=== PATIENT | female | born 1965 | race African-American/Black ===

== ENCOUNTER 2016-06-23 19:49 | Inpatient (IN) | payer OTHER, MEDICAID ==
[2016-06-23 19:50] VITALS: O2SAT 100
[2016-06-23] MEDS ORDERED: ONDANSETRON HCL 4 MG/2 ML VIAL ONE (19:56)
[2016-06-23] MEDS ORDERED: fentaNYL CITRATE 250 MCG/5 ML AMP ONE (19:56)
[2016-06-23] MEDS ORDERED: PROPOFOL 1000 MG/100 ML INJ 100 ML ONE ×2 (19:56→20:01)
[2016-06-23] MEDS: SODIUM CHLOR 0.9% 1000 ML INJ 1,000 ML IV SCH (20:12)
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
[2016-06-23] MEDS ORDERED: DEXTROSE 50% IN WATER 50 ML VIAL(D50) IV PUSH PRN (20:15)
[2016-06-23] MEDS ORDERED: MISCELLANEOUS NURSING INFORMATION XX SCH (20:15)
[2016-06-23] MEDS ORDERED: SODIUM PHOSPHATE INJ 30 MMOL in SODIUM CHLOR 0.9% 250 ML INJ 240 ML IV PRN (20:15)
[2016-06-23] MEDS ORDERED: ONDANSETRON HCL 4 MG/2 ML VIAL IV PRN (20:15)
[2016-06-23] MEDS ORDERED: MAGNESIUM SULFATE INJ 4 GM in SODIUM CHLORIDE 0.9% INJ 92 ML IV PRN (20:15)
[2016-06-23] MEDS ORDERED: POTASSIUM PHOSPHATE MONOBASIC 500 MG TAB PO/TUBE PRN (20:15)
[2016-06-23] MEDS ORDERED: MAGNESIUM SULFATE INJ 2 GM in SODIUM CHLORIDE 0.9% INJ 96 ML IV PRN (20:15)
[2016-06-23] MEDS ORDERED: POTASSIUM PHOSPHATE MONOBASIC 500 MG TAB PO PRN (20:15)
[2016-06-23] MEDS ORDERED: DIPHTH/TETANUS/ACEL PERTUSSIS (BOOSTER) 0.5 ML VIAL/PFS IM ONE (20:15)
[2016-06-23] MEDS ORDERED: PROPOFOL 1000 MG/100 ML INJ 100 ML IV SCH (20:15)
[2016-06-23] MEDS ORDERED: POTASSIUM PHOSPHATE INJ 30 MMOL in SODIUM CHLOR 0.9% 250 ML INJ 250 ML IV PRN (20:15)
[2016-06-23] MEDS ORDERED: MAGNESIUM OXIDE 400 MG TAB PO PRN (20:15)
[2016-06-23] MEDS ORDERED: RESP: ALBUTEROL 2.5 MG/IPRATROPIUM 0.5 MG NEB (PRN) INH (20:15)
[2016-06-23] MEDS ORDERED: SODIUM CHLORIDE 0.9% FLUSH 5 ML FLUSH IV FLUSH PRN (20:15)
[2016-06-23] MEDS ORDERED: POTASSIUM CHLOR 40 MEQ PREMIX 100 ML IV PRN ×2 (20:15)
[2016-06-23] MEDS ORDERED: POTASSIUM CHLOR 20 MEQ PREMIX 100 ML IV PRN ×2 (20:15)
[2016-06-23] MEDS ORDERED: CHLORHEXIDINE GLUCONATE 2 % 1 PACK (2 CLOTHS) TOP PRN (20:15)
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
[2016-06-23] MEDS ORDERED: IOHEXOL 350 MG/ML 10 ML VIAL (for RAD DIAG) IV ONE (20:23)
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
[2016-06-23 20:40] LABS: AUTOMATED NEUTROPHIL # 10.8 TH/MM3 (1.8-7.7); BASOPHIL % 0.1 % (0.0-2.0); EOSINOPHIL # 0.1 TH/MM3 (0-0.4); EOSINOPHIL % 0.6 % (0.0-4.0); HEMATOCRIT 33.2 % (35.0-46.0); LYMPH % 32.2 % (9.0-44.0); LYMPHOCYTE # 5.8 TH/MM3 (1.0-4.8); MEAN CORPUSCULAR HEMOGLOBIN 27.2 PG (27.0-34.0); MEAN CORPUSCULAR HGB CONC 33.1 % (32.0-36.0); MONO % 6.6 % (0.0-8.0); NEUT % 60.5 % (16.0-70.0); PLATELET COUNT 209 TH/MM3 (150-450); RED BLOOD COUNT 4.05 MIL/MM3 (4.00-5.30); RED CELL DISTRIBUTION WIDTH 13.5 % (11.6-17.2); WHITE BLOOD COUNT 17.9 TH/MM3 (4.0-11.0)
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
[2016-06-23 20:43] LABS: HEMO FLAGS AUTO DIFF
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
[2016-06-23 20:45] VITALS: BP 142/87; PULSE 99; RESP 34; TEMP 97.8; O2SAT 100
[2016-06-23 20:52] LABS: APTT (PATIENT) 21.6 SEC (24.3-30.1); PROTHROMBIN TIME - PATIENT 10.7 SEC (9.8-11.6)
[2016-06-23 20:55] VITALS: O2SAT 100
[2016-06-23] MEDS: SODIUM CHLORIDE 0.9% FLUSH 5 ML FLUSH IV FLUSH SCH (21:00)
[2016-06-23] MEDS: DOCUSATE SODIUM 50 MG/SENNA 8.6 MG TAB PO SCH (21:00)
[2016-06-23 21:30] LABS: BANDS 6 % (0-6); NEUTROPHIL # MANUAL DIFF 11.1 TH/MM3 (1.8-7.7); PLATELET ESTIMATE SMEAR NORMAL (NORMAL); PLATELET MORPHOLOGY NORMAL (NORMAL); POLYS (SEG NEUTROPHILS) 56 % (16-70); SCAN/DIFF FINAL DIFF MANUAL; WBC DIFF SAMPLE 100
[2016-06-23 21:31] LABS: TARGET CELLS 1+ (NORMAL)
[2016-06-23] MEDS: fentaNYL DRIP 250 ML IV SCH (21:53)
[2016-06-23 22:00] VITALS: PULSE 99
[2016-06-23] MEDS: RESP: ALBUTEROL 2.5 MG/IPRATROPIUM 0.5 MG NEB (SCH) INH (22:00)
[2016-06-23 22:28] LABS: BLOOD GAS BASE EXCESS -7.3 mmol/L (-2-2); BLOOD GAS CARBOXYHEMOGLOBIN 0.7 % (0-4); BLOOD GAS HCO3 16 mmol/L (22-26); BLOOD GAS METHEMOGLOBIN 1.1 % (0-2); BLOOD GAS O2 HGB SATURATION 98 % (90-100); BLOOD GAS OXYGEN CONTENT 16.7 Vol % (12.0-20.0); BLOOD GAS PCO2 23 mmHg (38-42); BLOOD GAS PO2 556 mmHg (61-120); BLOOD GAS TOTAL HGB 11.1 G/DL (12.0-16.0); TEMP CORR TO 98.6
[2016-06-23 22:29] LABS: CRITICAL VALUE YES; OXYGEN DEVICE VENTILATOR; VENT SETTINGS AC/16/500/PEEP+5
[2016-06-23 22:30] LABS: DRAW SITE RT RADIAL; FIO2 100 %; NUMBER OF ARTERIAL PUNCTURES 1; STAT NO; ULNAR PULSE PRESENT
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
[2016-06-24] VITALS (18 sets, daily range): BP systolic 100–149; BP diastolic 51–82; PULSE 80–114; RESP 1–15; TEMP 97.3–98.6; O2SAT 100
[2016-06-24] MEDS ORDERED: METHADONE 10 MG/ML VIAL IV PUSH ONE (02:30)
[2016-06-24] MEDS ORDERED: LACTATED RINGER'S 1000 ML INJ 1,000 ML IV ONE ×3 (02:30→12:00)
[2016-06-24] MEDS: ENOXAPARIN SODIUM 40 MG/0.4 ML SYRINGE SQ SCH (03:00)
[2016-06-24] MEDS: ACETAMINOPHEN 650 MG/20.3 ML UDC PO SCH ×4 (03:00→21:00)
[2016-06-24] MEDS: oxyCODONE HCL ORAL CONC 20 MG/ML SYRINGE PO SCH ×7 (03:00→23:00)
[2016-06-24] MEDS: RESP: ALBUTEROL 2.5 MG/IPRATROPIUM 0.5 MG NEB (SCH) INH ×4 (03:54→20:42)
[2016-06-24] MEDS: GABAPENTIN 250 MG/5 ML UDC TUBE SCH ×4 (03:57→21:01)
[2016-06-24] MEDS: CHLORHEXIDINE GLUCONATE 2 % 1 PACK (2 CLOTHS) TOP SCH (04:00)
[2016-06-24 04:50] LABS: HEMATOCRIT 35.1 % (35.0-46.0); MEAN CELL VOLUME 83.1 FL (80.0-100.0); MEAN CORPUSCULAR HEMOGLOBIN 27.6 PG (27.0-34.0); MEAN CORPUSCULAR HGB CONC 33.3 % (32.0-36.0); PLATELET COUNT 165 TH/MM3 (150-450); RED BLOOD COUNT 4.23 MIL/MM3 (4.00-5.30); RED CELL DISTRIBUTION WIDTH 13.8 % (11.6-17.2); REVIEW FLAG FINAL; WHITE BLOOD COUNT 17.4 TH/MM3 (4.0-11.0)
[2016-06-24 04:56] LABS: POTASSIUM 4.3 MEQ/L (3.5-5.1)
--- NOTE | 2016-06-24 05:51 | RADRPT ---
EXAM DATE/TIME: 06/24/2016 04:31 [facility] COMPARISON: CHEST SINGLE AP, June 23, 2016, 19:57. INDICATIONS : Shortness of breath, possible pulmonary disease. MEDICAL HISTORY : None. SURGICAL HISTORY : None. ENCOUNTER: Subsequent ACUITY: 2 days PAIN SCORE: Non-responsive. LOCATION: Bilateral chest FINDINGS: Single AP view of the chest. Endotracheal tube remains in place. Nasogastric tubes in place and loope d in the stomach with the tip at the gastric cardia. The lungs are clear. Cardiomediastinal silhouett e within normal limits. No evidence of pleural effusion or pneumothorax. CONCLUSION: No acute cardiopulmonary disease identified. George Kilgore MD on June 24, 2016 at 5:49 Board Certified Radiologist. This report was verified electronically.
[2016-06-24] MEDS: INSULIN NovoLIN REGULAR SUPPLEMENTAL SCALE SQ SCH ×4 (05:52→17:40)
[2016-06-24 06:37] LABS: BLOOD GAS BASE EXCESS -6.2 mmol/L (-2-2); BLOOD GAS CARBOXYHEMOGLOBIN 0.7 % (0-4); BLOOD GAS HCO3 19 mmol/L (22-26); BLOOD GAS METHEMOGLOBIN 0.9 % (0-2); BLOOD GAS O2 HGB SATURATION 98 % (90-100); BLOOD GAS OXYGEN CONTENT 12.7 Vol % (12.0-20.0); BLOOD GAS PCO2 40 mmHg (38-42); BLOOD GAS PO2 206 mmHg (61-120); BLOOD GAS TOTAL HGB 8.9 G/DL (12.0-16.0); TEMP CORR TO 98.6
[2016-06-24 06:38] LABS: CRITICAL VALUE NO; DRAW SITE RT RADIAL; FIO2 40 %; NUMBER OF ARTERIAL PUNCTURES 1; OXYGEN DEVICE VENTILATOR; STAT NO; ULNAR PULSE PRESENT; VENT SETTINGS AC/14/450/PEEP5
[2016-06-24] MEDS: SODIUM CHLOR 0.9% 1000 ML INJ 1,000 ML IV SCH ×2 (07:40→20:02)
[2016-06-24] MEDS: CHLORHEXIDINE 0.12% (ORAL KIT) 15 ML CUP MT SCH ×2 (07:40→20:00)
[2016-06-24] MEDS: SODIUM CHLORIDE 0.9% FLUSH 5 ML FLUSH IV FLUSH SCH (07:40)
[2016-06-24] MEDS: DOCUSATE SODIUM 50 MG/SENNA 8.6 MG TAB PO SCH ×2 (07:41→21:00)
[2016-06-24] MEDS ORDERED: PANTOPRAZOLE SODIUM 40 MG VIAL IV SCH (09:00)
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
[2016-06-24] MEDS ORDERED: ONDANSETRON HCL 4 MG/2 ML VIAL IV PUSH ONE (12:00)
[2016-06-24] MEDS: fentaNYL DRIP 250 ML IV SCH (17:37)
[2016-06-24] MEDS ORDERED: ceFAZolin 2 GM PREMIX 50 ML ONE (18:48)
[2016-06-24] MEDS ORDERED: HYDROmorphone HCL PF 2 MG/ML VIAL ONE (18:57)
[2016-06-24] MEDS ORDERED: ACETAMINOPHEN 1000 MG/100 ML VIAL IV ONE (18:57)
[2016-06-24] MEDS ORDERED: VANCOMYCIN HCL 1000 MG VIAL OTHER ONE (19:20)
[2016-06-24] MEDS ORDERED: ceFAZolin INJ 1,000 MG VIAL IV ONE (19:26)
[2016-06-24] MEDS ORDERED: GENTAMICIN SULFATE 80 MG/2 ML VIAL IRRIGATION ONE (19:32)
--- NOTE | 2016-06-24 20:14 | PD.OP ---
cc: Ryan Cadet MD Operative Report Date of Surgery: Jun 24, 2016 Preoperative Diagnosis: Left femur fracture, left humerus fracture, bilateral clavicle fractures, left scapula fracture Postoperative Diagnosis: Procedure: Left femur reduction and intramedullary nail fixation Anesthesia: Gen. Surgeon: Ryan Cadet Construction Materials Tester(s): CHANDANA Durham PA-C The surgical procedure was assisted by my physician dental chairside assistant. My P.A. presence was necessary throughout this case for the manipulation and positioning of the surgical extremity. My P.A. was assisting me throughout the duration of this procedure. The skill set of a physician dental chairside assistant was medically necessary to complete this procedure. During the surgical case the surgical instrument technician was working at the back table and the physician dental chairside assistant was directly assisting me. Operation and Findings: Plan of activity: Weight-bear as tolerated bilateral lower extremities, nonweightbearing left arm Patient was seen and evaluated preoperatively. The patient has significant leg pain from femur shaft fracture. The risk and benefits of surgery include bleeding, infection, nonunion, malunion, need for hip replacement, painful hardware, as well as medical competitions including blood clots, stroke, heart attack, and . Informed consent was obtained. Operative site was marked. Patient was brought to the operating room and placed on Kg table. IV sedation was administered by anesthesiologist. Timeout procedure was performed. Hip and leg were prepped with alcohol followed by Hibiclens and draped in the usual sterile fashion. IV antibiotics were given prior to incision. Procedure began with reduction of fracture. Traction was applied. The leg was manipulated to achieve reduction. Excellent reduction was achieved. Fluoroscopy was used to confirm reduction. A two inch incision was made over the anterior knee. A medial arthrotomy was created. Guidepin was placed into the distal femur and advanced into the femoral canal. Fluoroscopy confirmed appropriate guidepin placement. A opening reamer was placed over the guidepin. A long ball tipped guide pin was now placed down the femoral canal into the center of the proximal femur. The nail length was now measured. Fluoroscopy confirmed appropriate guidepin placement. Flexible reamers were now passed over the guidepin to ream the intramedullary canal. The BitTorrent nail was attached to the insertion handle. Nail was now placed over the guidepin into the femoral canal. Fluoroscopy confirmed appropriate nail placement. A small percutaneous incisions were made over the lateral thigh. Cannulas were placed through the insertion handle down to the femur. Using the insertion handle as a guide the distal interlocking screw holes were predrilled and screw lengths were measured. Appropriate length screws was now placed. Next, using perfect [place] technique two proximal interlocking screws were placed. Screw holes were predrilled and screw lengths were measured. Final fluoroscopy revealed well aligned fracture with well-placed hardware. Incision was closed with 0 Vicryl, 3-0 Vicryl and regan. Sterile dressings were applied. Patient was transferred back to [facility] in stable condition. Ryan Cadet MD Jun 24, 2016 20:14
[2016-06-24] MEDS ORDERED: MORPHINE SULFATE 4 MG/ML INJ IV PUSH PRN ×2 (20:15→21:15)
[2016-06-24] MEDS ORDERED: ACETAMINOPHEN/HYDROcodone 325 MG/7.5 MG TAB PO PRN ×2 (20:15)
[2016-06-24] MEDS ORDERED: fentaNYL CITRATE 250 MCG/5 ML AMP ONE (20:36)
[2016-06-24] MEDS ORDERED: MIDAZOLAM HCL 2 MG/2 ML VIAL ONE (20:36)
[2016-06-24] MEDS: SODIUM CHLORIDE 0.9% FLUSH 5 ML FLUSH IVF SCH (21:00)
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
[2016-06-24] MEDS ORDERED: ceFAZolin INJ 500 MG in SODIUM CHLORIDE 0.9% INJ 100 ML IV SCH (21:15)
[2016-06-24] MEDS ORDERED: ACETAMINOPHEN/CODEINE ELIX 120 MG/12 MG/5 ML CUP PO PRN (21:15)
--- NOTE | 2016-06-24 21:52 | RADRPT ---
EXAM DATE/TIME: 06/24/2016 19:59 [facility] COMPARISON: No previous studies available for comparison. INDICATIONS : Left Femur IM Heladio placement MEDICAL HISTORY : Unobtainable. SURGICAL HISTORY : Unobtainable. ENCOUNTER: Initial ACUITY: 1 day PAIN SCORE: Non-responsive. LOCATION: Left Femur. FINDINGS: Mid to distal shaft fracture of the left femur has undergone interim intramedullary rodding. Alignmen t is normal. No new fracture or other acute complication seen. CONCLUSION: Intramedullary heladio placement across the mid to distal shaft fracture of the left femur. Normal alignm ent. Jaun Steele MD on June 24, 2016 at 21:50 Board Certified Radiologist. This report was verified electronically.
[2016-06-25] VITALS (9 sets, daily range): BP systolic 103–139; BP diastolic 66–88; PULSE 83–118; RESP 14–22; TEMP 97.4–99.6; O2SAT 100
[2016-06-25] MEDS: ACETAMINOPHEN 325 MG TAB PO SCH ×2 (00:25→06:44)
[2016-06-25] MEDS: ENOXAPARIN SODIUM 40 MG/0.4 ML SYRINGE SQ SCH (03:40)
[2016-06-25] MEDS: CHLORHEXIDINE GLUCONATE 2 % 1 PACK (2 CLOTHS) TOP SCH (03:40)
[2016-06-25 04:34] LABS: ALT (GPT) 37 U/L (10-53); ANION GAP 9 MEQ/L (5-15); AST (GOT) 70 U/L (15-37); BICARBONATE 20.8 MEQ/L (21.0-32.0); BLOOD UREA NITROGEN 4 MG/DL (7-18); CHLORIDE 111 MEQ/L (98-107); GLOMERULAR FILTRATION RATE 100 ML/MIN (>89); MAGNESIUM 1.6 MG/DL (1.5-2.5); SODIUM (NA) 141 MEQ/L (136-145)
[2016-06-25 04:36] LABS: ALKALINE PHOSPHATASE 54 U/L (45-117); TOTAL BILIRUBIN ADULT 0.5 MG/DL (0.2-1.0)
[2016-06-25 05:21] LABS: BLOOD GAS BASE EXCESS -3.7 mmol/L (-2-2); BLOOD GAS CARBOXYHEMOGLOBIN 0.9 % (0-4); BLOOD GAS HCO3 21 mmol/L (22-26); BLOOD GAS METHEMOGLOBIN 0.6 % (0-2); BLOOD GAS O2 HGB SATURATION 98 % (90-100); BLOOD GAS OXYGEN CONTENT 11.5 Vol % (12.0-20.0); BLOOD GAS PCO2 41 mmHg (38-42); BLOOD GAS PO2 239 mmHg (61-120); BLOOD GAS TOTAL HGB 7.9 G/DL (12.0-16.0); CRITICAL VALUE NO; DRAW SITE RT RADIAL; LITER FLOW 4 L/M; NUMBER OF ARTERIAL PUNCTURES 1; OXYGEN DEVICE NASAL CANNULA; STAT NO; TEMP CORR TO 98.6; ULNAR PULSE PRESENT
[2016-06-25] MEDS: INSULIN NovoLIN REGULAR SUPPLEMENTAL SCALE SQ SCH ×4 (06:00→18:00)
--- NOTE | 2016-06-25 06:17 | RADRPT ---
EXAM DATE/TIME: 06/25/2016 03:27 [facility] COMPARISON: No previous studies available for comparison. INDICATIONS : Shortness of breath. MEDICAL HISTORY : None. SURGICAL HISTORY : None. ENCOUNTER: Subsequent ACUITY: 3 days PAIN SCORE: Non-responsive. LOCATION: Bilateral chest FINDINGS: A single view of the chest demonstrates the lungs to be symmetrically aerated without evidence of mas s, infiltrate or effusion. The cardiomediastinal contours are unremarkable. Osseous structures are intact. CONCLUSION: 1. No acute findings. Previous endotracheal tube and nasogastric tube removed. Kareem Sousa MD on June 25, 2016 at 6:15 Board Certified Radiologist. This report was verified electronically.
[2016-06-25] MEDS: GABAPENTIN 300 MG CAP PO SCH ×3 (06:44→21:47)
--- NOTE | 2016-06-25 07:43 | PD.ORT.PN ---
Subjective Subjective Remarks POD 1 s/p IMN left femur s/p left humerus fx s/p left scapula and bilateral clavicle fxs doing well. pain controlled. states are is sore Objective Vitals Vital Signs Date Time Temp Pulse Resp B/P Pulse Ox O2 Delivery O2 Flow Rate FiO2 06/25/16 06:00 83 06/25/16 04:00 86 06/25/16 04:00 98.4 86 22 126/71 100 06/25/16 02:00 102 06/25/16 00:00 86 06/25/16 00:00 97.4 86 14 108/68 100 06/24/16 22:00 114 06/24/16 21:00 98.2 99 15 100/59 100 06/24/16 20:43 100 Simple Mask 8.00 06/24/16 20:30 100 Simple Mask 8.00 06/24/16 18:45 100 100 06/24/16 18:00 100 06/24/16 16:33 30 06/24/16 16:33 100 30 06/24/16 16:00 109 06/24/16 16:00 40 06/24/16 16:00 98.4 95 14 142/69 100 06/24/16 14:00 89 06/24/16 12:58 100 30 06/24/16 12:00 100 06/24/16 12:00 40 06/24/16 12:00 98.6 98 1 118/56 100 06/24/16 10:00 86 06/24/16 08:00 40 06/24/16 08:00 83 06/24/16 08:00 97.4 83 14 118/56 100 I/O 06/24/16 06/24/16 06/24/16 06/25/16 06/25/16 06/25/16 07:00 15:00 23:00 07:00 15:00 23:00 Intake Total 1779 ml 60 ml 2273 ml 1884 ml Output Total 485 ml 600 ml 350 ml 1250 ml Balance 1294 ml -540 ml 1923 ml 634 ml Intake Oral 300 ml IV Total 1779 ml 2153 ml 1584 ml Other 60 ml 120 ml Output Urine Total 485 ml 600 ml 350 ml 1250 ml # Bowel Movements 0 0 0 Result Diagram: 06/24/16 0334 06/25/16 0330 Imaging Last 24 hours Impressions Chest X-Ray 06/25/16 0600 Signed Impressions: Service Date/Time: Saturday, June 25, 2016 03:27 - CONCLUSION: 1. No acute findings. Previous endotracheal tube and nasogastric tube removed. Kareem Sousa MD Objective Remarks LUE: +coap splint. +sling. NVI with good function of radial nerve LLE: dressings clean and dry. intact. NVI RUE: pain over clavicle with palpation. NVI Assessment & Plan Assessment and Plan 1) Left Femoral Shaft fx s/p retrograde IMN - POD 1 -WBAT -daily dressing changes POD 2 -knee brace was DC'd at bedside. does not need to have knee brace. -work wit PT 3) Left Distal Humeral Shaft Fx -maintain splint and sling at all times -NWB -plan for surgery tue/tu 2) Bilateral Clavicle and left scapula fxs -nonop -NWB Juni Wiley Jun 25, 2016 07:43
[2016-06-25] MEDS: SODIUM CHLORIDE 0.9% FLUSH 5 ML FLUSH IVF SCH ×2 (09:09→21:48)
[2016-06-25] MEDS: DOCUSATE SODIUM 50 MG/SENNA 8.6 MG TAB PO SCH ×2 (09:09→21:47)
[2016-06-25] MEDS: CALCIUM/VITAMIN D 250 MG/125 U TAB PO SCH ×3 (09:09→16:48)
[2016-06-25] MEDS: CHOLECALCIFEROL (VIT D3) 1000 UNIT TAB PO SCH (09:09)
[2016-06-25] MEDS: SODIUM CHLOR 0.9% 1000 ML INJ 1,000 ML IV SCH (09:10)
[2016-06-25 11:39] LABS: AUTOMATED NEUTROPHIL # 11.5 TH/MM3 (1.8-7.7); BASOPHIL % 0.3 % (0.0-2.0); EOSINOPHIL % 0.2 % (0.0-4.0); HEMATOCRIT 25.3 % (35.0-46.0); HEMO FLAGS DIFF FINAL; LYMPH % 10.7 % (9.0-44.0); LYMPHOCYTE # 1.5 TH/MM3 (1.0-4.8); MEAN CELL VOLUME 83.7 FL (80.0-100.0); MEAN CORPUSCULAR HEMOGLOBIN 26.9 PG (27.0-34.0); MEAN CORPUSCULAR HGB CONC 32.2 % (32.0-36.0); MONO % 6.8 % (0.0-8.0); PLATELET COUNT 114 TH/MM3 (150-450); RED BLOOD COUNT 3.03 MIL/MM3 (4.00-5.30); RED CELL DISTRIBUTION WIDTH 13.5 % (11.6-17.2); WHITE BLOOD COUNT 14.1 TH/MM3 (4.0-11.0)
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
[2016-06-25] MEDS: FAMOTIDINE 20 MG TAB PO SCH (21:48)
[2016-06-25] MEDS: ALPRAZolam 0.5 MG TAB PO PRN (21:49)
[2016-06-26] VITALS (11 sets, daily range): BP systolic 104–152; BP diastolic 60–81; PULSE 105–124; RESP 14–17; TEMP 97.2–99.2; O2SAT 92–100
[2016-06-26] MEDS: ENOXAPARIN SODIUM 40 MG/0.4 ML SYRINGE SQ SCH (01:40)
[2016-06-26] MEDS: INSULIN NovoLIN REGULAR SUPPLEMENTAL SCALE SQ SCH ×4 (05:52→17:59)
[2016-06-26] MEDS: GABAPENTIN 300 MG CAP PO SCH ×3 (05:52→22:20)
--- NOTE | 2016-06-26 08:08 | PD.ORT.PN ---
Subjective Subjective Remarks complaints of post op pain no sob, no chest pain Objective Vitals Vital Signs Date Time Temp Pulse Resp B/P Pulse Ox O2 Delivery O2 Flow Rate FiO2 06/26/16 03:45 98.5 116 17 115/73 100 06/26/16 00:30 98.9 111 17 104/65 99 06/25/16 20:00 99.6 110 18 137/79 100 06/25/16 16:00 98.1 118 18 139/80 100 06/25/16 13:01 97.7 105 17 127/88 100 06/25/16 12:05 Nasal Cannula 3.00 06/25/16 10:00 90 I/O 06/25/16 06/25/16 06/25/16 06/26/16 06/26/16 06/26/16 07:00 15:00 23:00 07:00 15:00 23:00 Intake Total 1884 ml 1647 ml 240 ml 480 ml Output Total 1250 ml 1975 ml 225 ml Balance 634 ml -328 ml 240 ml 255 ml Intake Oral 300 ml 1080 ml 240 ml 480 ml IV Total 1584 ml 567 ml Output Urine Total 1250 ml 1975 ml 225 ml # Voids 0 1 # Bowel Movements 0 0 0 0 Result Diagram: 06/25/16 1120 06/25/16 0330 Imaging Last 24 hours Impressions Chest X-Ray 06/25/16 0600 Signed Impressions: Service Date/Time: Saturday, June 25, 2016 03:27 - CONCLUSION: 1. No acute findings. Previous endotracheal tube and nasogastric tube removed. Kareem Sousa MD Objective Remarks Also seen by Dr. Jaun Bonilla LUE: +coap splint. +sling. NVI with good function of radial nerve LLE: dressings clean and dry. intact. NVI RUE: pain over clavicle with palpation. NVI Assessment & Plan Assessment and Plan 1) Left Femoral Shaft fx s/p retrograde IMN - POD #2 -WBAT -daily dressing changes starting today -work with PT 3) Left Distal Humeral Shaft Fx -maintain splint and sling at all times -NWB -plan for surgery mon/tu 2) Bilateral Clavicle and left scapula fxs -nonop -NWB lovenox for dvt prop Serina Almendarez Jun 26, 2016 08:08
[2016-06-26] MEDS: SODIUM CHLORIDE 0.9% FLUSH 5 ML FLUSH IVF SCH ×2 (09:57→22:22)
[2016-06-26] MEDS: CHOLECALCIFEROL (VIT D3) 1000 UNIT TAB PO SCH (09:57)
[2016-06-26] MEDS: CALCIUM/VITAMIN D 250 MG/125 U TAB PO SCH ×3 (09:57→18:27)
[2016-06-26] MEDS: DOCUSATE SODIUM 50 MG/SENNA 8.6 MG TAB PO SCH ×2 (09:57→22:21)
[2016-06-26 10:50] LABS: BICARBONATE 21.7 MEQ/L (21.0-32.0); POTASSIUM 3.4 MEQ/L (3.5-5.1)
[2016-06-26 11:19] LABS: MEAN CELL VOLUME 83.1 FL (80.0-100.0); MEAN CORPUSCULAR HEMOGLOBIN 27.1 PG (27.0-34.0); MEAN CORPUSCULAR HGB CONC 32.6 % (32.0-36.0); PLATELET COUNT 113 TH/MM3 (150-450); RED BLOOD COUNT 2.38 MIL/MM3 (4.00-5.30); RED CELL DISTRIBUTION WIDTH 13.5 % (11.6-17.2); WHITE BLOOD COUNT 11.3 TH/MM3 (4.0-11.0)
[2016-06-26 11:24] LABS: REVIEW FLAG FINAL
[2016-06-26 11:36] LABS: HEMATOCRIT 19.8 % (35.0-46.0)
[2016-06-26] MEDS ORDERED: SODIUM CHLOR 0.9% 250 ML INJ 250 ML IV ONE (12:45)
[2016-06-26] MEDS: ALPRAZolam 0.5 MG TAB PO PRN ×2 (13:41→22:21)
[2016-06-26] MEDS: METHOCARBAMOL 500 MG TAB PO SCH ×2 (14:25→22:21)
--- NOTE | 2016-06-26 14:57 | HHI.PR ---
Subjective Subjective Notes Complains of pain in the left arm. Reports history of chronic anemia. Remarks seen and examined with LEAN SPECIALIST-agree with assessment and plan Objective Vitals/I&O Vital Signs Date Time Temp Pulse Resp B/P Pulse Ox O2 Delivery O2 Flow Rate FiO2 06/26/16 11:31 98.6 123 16 152/75 92 06/25/16 21:46 Nasal Cannula 2.00 06/24/16 18:45 100 Labs Laboratory Tests Test 06/26/16 06/26/16 06/26/16 10:05 10:47 13:14 Sodium Level 141 Potassium Level 3.4 Chloride Level 109 Carbon Dioxide Level 21.7 Anion Gap 10 Blood Urea Nitrogen 6 Creatinine 0.53 Estimat Glomerular Filtration 120 Rate Random Glucose 90 Calcium Level 7.9 White Blood Count 11.3 Red Blood Count 2.38 Hemoglobin 6.4 Hematocrit 19.8 Mean Corpuscular Volume 83.1 Mean Corpuscular Hemoglobin 27.1 Mean Corpuscular Hemoglobin 32.6 Concent Red Cell Distribution Width 13.5 Platelet Count 113 Mean Platelet Volume 8.5 Blood Type O NEGATIVE Antibody Screen NEGATIVE Crossmatch Leukocyte-Reduced Red Blood Cells Blood Bank Comment Radiology Last Impressions Chest X-Ray 06/25/16 0600 Signed Impressions: Service Date/Time: Saturday, June 25, 2016 03:27 - CONCLUSION: 1. No acute findings. Previous endotracheal tube and nasogastric tube removed. Kareem Sousa MD Femur X-Ray 06/24/16 0000 Signed Impressions: Service Date/Time: June 19:59 - CONCLUSION: Intramedullary kathleen placement across the mid to distal shaft fracture of the left femur. Normal alignment. Jaun Steele MD Chest CT 06/23/162018 Signed Impressions: Service Date/Time: Thursday, June 23, 2016 20:14 - CONCLUSION: Bilateral clavicular fractures and right scapular fracture identified. Mild dependent atelectatic changes are seen. Tadeo Benitez MD Pelvis X-Ray 06/23/161953 Signed Impressions: Service Date/Time: Thursday, June 23, 2016 19:57 - CONCLUSION: No acute disease. Tadeo Benitez MD Head CT 06/23/161953 Signed Impressions: Service Date/Time: Thursday, June 23, 2016 20:14 - CONCLUSION: No acute disease. Tadeo Benitez MD Cervical Spine CT 06/23/161953 Signed Impressions: Service Date/Time: Thursday, June 23, 2016 20:18 - CONCLUSION: No acute disease. Tadeo Benitez MD Abdomen/Pelvis CT 06/23/161953 Signed Impressions: Service Date/Time: Thursday, June 23, 2016 20:14 - CONCLUSION: 1. Left ovarian cyst. 2. Liver cysts. Tadeo Benitez MD Humerus X-Ray 06/23/16 0000 Signed Impressions: Service Date/Time: Thursday, June 23, 2016 19:57 - CONCLUSION: Left humerus and scapular fractures. Tadeo Benitez MD Narrative Exam GENERAL: Adult female lying in bed. SKIN: Warm and dry. HEAD: Normocephalic. ENT: No nasal bleeding or discharge. Mucous membranes pink and moist. NECK: Trachea midline. No JVD. CARDIOVASCULAR: Regular rate and rhythm. RESPIRATORY: No accessory muscle use. Lungs clear to auscultation. Breath sounds equal bilaterally. GASTROINTESTINAL: Abdomen soft, non-tender, nondistended. + BS. MUSCULOSKELETAL: Extremities without cyanosis, or edema. Left arm soft cast in place with sling. NEUROLOGICAL: Awake and alert. Normal speech. A/P Assessment and Plan INJURIES: BILAT clavicle fx LEFT scapular fx (non-op) Aspiration LEFT femur fx LEFT humerus fx 06/24: ORIF LEFT femur PMHx: Anemia Diet: Regular, tolerating Pulm: IS, acapella, EZ pap. Duonebs. Pain: Roxicodone 10 q4, Dilaudid, Neurontin. Added Robaxin for better pain control. Activity: BR. PT/OT ordered. (WBAT LLE, NWB LUE) GI: Pepcid. Bowel: Corazon-colace 2 BID. No BM yet. DVT: Lovenox 40 QD, SCDs. Hgb 6.4 today. Transfuse 2 units PRBC. Recheck in a.m. Orthopedics plans to repair left humerus fracture on Tuesday. Patient informed she will likely need rehabilitation at discharge and is interested in going to [facility]. Case management consulted for discharge planning. Plan of care discussed patient at bedside. Jessika Lew Jun 26, 2016 14:57 Comfort Mcdonald MD Jul 06, 2016 17:39
[2016-06-26] MEDS ORDERED: POTASSIUM CHLORIDE 20 MEQ CONTROLLED RELEASE TAB PO ONE (22:15)
[2016-06-26] MEDS: FAMOTIDINE 20 MG TAB PO SCH (22:21)
[2016-06-27 01:25] VITALS: BP 112/69; PULSE 114; RESP 15; TEMP 98.9; O2SAT 97
[2016-06-27] MEDS: INSULIN NovoLIN REGULAR SUPPLEMENTAL SCALE SQ SCH ×4 (06:00→23:41)
[2016-06-27] MEDS: GABAPENTIN 300 MG CAP PO SCH ×3 (06:06→22:38)
[2016-06-27] MEDS: METHOCARBAMOL 500 MG TAB PO SCH ×3 (06:06→22:39)
[2016-06-27] MEDS: ENOXAPARIN SODIUM 40 MG/0.4 ML SYRINGE SQ SCH (06:15)
[2016-06-27 06:16] LABS: HEMATOCRIT 28.4 % (35.0-46.0); MEAN CELL VOLUME 80.8 FL (80.0-100.0); MEAN CORPUSCULAR HGB CONC 33.4 % (32.0-36.0); PLATELET COUNT 120 TH/MM3 (150-450); RED BLOOD COUNT 3.51 MIL/MM3 (4.00-5.30); RED CELL DISTRIBUTION WIDTH 18.5 % (11.6-17.2); WHITE BLOOD COUNT 12.3 TH/MM3 (4.0-11.0)
[2016-06-27 06:22] LABS: REVIEW FLAG FINAL
[2016-06-27 06:40] LABS: POTASSIUM 4.1 MEQ/L (3.5-5.1)
[2016-06-27 07:25] VITALS: BP 152/83; PULSE 94; RESP 16; TEMP 97.3; O2SAT 92
--- NOTE | 2016-06-27 08:35 | PD.ORT.PN ---
Subjective Subjective Remarks pain better controlled today, no voiced complaints no sob, no chest pain Objective Vitals Vital Signs Date Time Temp Pulse Resp B/P Pulse Ox O2 Delivery O2 Flow Rate FiO2 06/27/16 01:25 98.9 114 15 112/69 97 06/26/16 23:26 99.2 113 14 135/78 97 06/26/16 22:59 99.1 111 14 122/70 97 06/26/16 20:33 99.1 120 14 109/70 95 06/26/16 19:21 93 21 06/26/16 17:45 97.2 119 16 138/78 93 06/26/16 17:30 98.0 124 16 142/81 96 06/26/16 16:45 98.0 124 16 142/81 96 06/26/16 11:31 98.6 123 16 152/75 92 I/O 06/26/16 06/26/16 06/26/16 06/27/16 06/27/16 06/27/16 07:00 15:00 23:00 07:00 15:00 23:00 Intake Total 480 ml 960 ml 730 ml 490 ml Output Total 225 ml Balance 255 ml 960 ml 730 ml 490 ml Intake Oral 480 ml 960 ml 480 ml 240 ml Packed Cells 250 ml 250 ml Output Urine Total 225 ml # Voids 1 2 1 1 # Bowel Movements 0 0 0 0 Result Diagram: 06/27/16 0558 06/27/16 0558 Imaging Last 24 hours Impressions Chest X-Ray 06/25/16 0600 Signed Impressions: Service Date/Time: Saturday, June 25, 2016 03:27 - CONCLUSION: 1. No acute findings. Previous endotracheal tube and nasogastric tube removed. Kareem Sousa MD Objective Remarks Also seen by Dr. Jaun Bonilla LUE: +coap splint. +sling. NVI with good function of radial nerve LLE: dressings clean and dry. intact. NVI RUE: pain over clavicle with palpation. NVI Assessment & Plan Assessment and Plan 1) Left Femoral Shaft fx s/p retrograde IMN - POD #3 -WBAT -daily dressing changes -work with PT 3) Left Distal Humeral Shaft Fx -maintain splint and sling at all times -NWB -plan for surgery on either tue/ 2) Bilateral Clavicle and left scapula fxs -nonop -NWB lovenox for dvt prop Serina Almendarez Jun 27, 2016 08:35
[2016-06-27 09:27] VITALS: O2SAT 94
[2016-06-27] MEDS: CALCIUM/VITAMIN D 250 MG/125 U TAB PO SCH ×3 (10:16→16:29)
[2016-06-27] MEDS: SODIUM CHLORIDE 0.9% FLUSH 5 ML FLUSH IVF SCH ×2 (10:17→22:39)
[2016-06-27] MEDS: CHOLECALCIFEROL (VIT D3) 1000 UNIT TAB PO SCH (10:17)
[2016-06-27] MEDS: DOCUSATE SODIUM 50 MG/SENNA 8.6 MG TAB PO SCH ×2 (10:17→22:39)
[2016-06-27 11:43] VITALS: BP 151/87; PULSE 97; RESP 16; TEMP 97.1; O2SAT 97
[2016-06-27] MEDS ORDERED: KETOROLAC TROMETHAMINE 30 MG/ML (IVP) VIAL IV PUSH SCH (14:30)
[2016-06-27 16:00] VITALS: BP 142/83; PULSE 108; RESP 16; TEMP 97.2; O2SAT 98
[2016-06-27] MEDS: SODIUM CHLORIDE 0.9% FLUSH 5 ML FLUSH IVF PRN (16:31)
--- NOTE | 2016-06-27 17:11 | HHI.PR ---
Subjective Subjective Notes Patient complaining of left arm pain. Requesting humerus be repaired tomorrow by orthopedics. Objective Vitals/I&O Vital Signs Date Time Temp Pulse Resp B/P Pulse Ox O2 Delivery O2 Flow Rate FiO2 06/27/16 11:43 97.1 97 16 151/87 97 06/27/16 09:27 21 06/25/16 21:46 Nasal Cannula 2.00 Labs Laboratory Tests Test 06/27/16 05:58 White Blood Count 12.3 Red Blood Count 3.51 Hemoglobin 9.5 Hematocrit 28.4 Mean Corpuscular Volume 80.8 Mean Corpuscular Hemoglobin 27.0 Mean Corpuscular Hemoglobin 33.4 Concent Red Cell Distribution Width 18.5 Platelet Count 120 Mean Platelet Volume 8.1 Sodium Level 143 Potassium Level 4.1 Chloride Level 112 Carbon Dioxide Level 24.0 Anion Gap 7 Blood Urea Nitrogen 7 Creatinine 0.54 Estimat Glomerular Filtration 118 Rate Random Glucose 107 Calcium Level 8.1 Radiology Last Impressions Chest X-Ray 06/25/16 0600 Signed Impressions: Service Date/Time: Saturday, June 25, 2016 03:27 - CONCLUSION: 1. No acute findings. Previous endotracheal tube and nasogastric tube removed. Kareem Sousa MD Femur X-Ray 06/24/16 0000 Signed Impressions: Service Date/Time: June 19:59 - CONCLUSION: Intramedullary kathleen placement across the mid to distal shaft fracture of the left femur. Normal alignment. Jaun Steele MD Chest CT 06/23/16 2019 Signed Impressions: Service Date/Time: Thursday, June 23, 2016 20:14 - CONCLUSION: Bilateral clavicular fractures and right scapular fracture identified. Mild dependent atelectatic changes are seen. Tadeo Benitez MD Pelvis X-Ray 06/23/161953 Signed Impressions: Service Date/Time: Thursday, June 23, 2016 19:57 - CONCLUSION: No acute disease. Tadeo Benitez MD Head CT 06/23/161953 Signed Impressions: Service Date/Time: Thursday, June 23, 2016 20:14 - CONCLUSION: No acute disease. Tadeo Benitez MD Cervical Spine CT 06/23/161953 Signed Impressions: Service Date/Time: Thursday, June 23, 2016 20:18 - CONCLUSION: No acute disease. Tadeo Benitez MD Abdomen/Pelvis CT 06/23/16 1954 Signed Impressions: Service Date/Time: Thursday, June 23, 2016 20:14 - CONCLUSION: 1. Left ovarian cyst. 2. Liver cysts. Tadeo Benitez MD Humerus X-Ray 06/23/16 0000 Signed Impressions: Service Date/Time: Thursday, June 23, 2016 19:57 - CONCLUSION: Left humerus and scapular fractures. Tadeo Benitez MD Narrative Exam GENERAL: Adult female OOB in chair. SKIN: Warm and dry. HEAD: Normocephalic. ENT: No nasal bleeding or discharge. Mucous membranes pink and moist. NECK: Trachea midline. No JVD. CARDIOVASCULAR: Regular rate and rhythm. RESPIRATORY: No accessory muscle use. Lungs clear to auscultation. Breath sounds equal bilaterally. GASTROINTESTINAL: Abdomen soft, non-tender, nondistended. + BS. MUSCULOSKELETAL: Extremities without cyanosis, or edema. Left arm soft cast in place with sling. NEUROLOGICAL: Awake and alert. Normal speech. A/P Assessment and Plan INJURIES: BILAT clavicle fx LEFT scapular fx (non-op) Aspiration LEFT femur fx LEFT humerus fx 06/24: ORIF LEFT femur PMHx: Anemia Diet: Regular, tolerating Pulm: IS, acapella, EZ pap. Duonebs. Pain: Roxicodone 10 q4, Dilaudid, Neurontin. Robaxin. Added IV Toradol for better pain control. Activity: BR. PT/OT evaluating. (WBAT LLE, NWB LUE) GI: Pepcid. Bowel: Corazon-colace 2 BID. No BM yet. DVT: Lovenox 40 QD, SCDs. Hgb 9.5 today. Orthopedics plans to repair left humerus fracture on Tuesday. Patient informed she will likely need rehabilitation at discharge and is interested in going to [facility]. Case management consulted for discharge planning. Plan of care discussed patient at bedside. Remarks seen and examined with POWDER TRUCK DRIVER-agree with assessment and plan Jessika Lew Jun 27, 2016 17:11 Comfort Mcdonald MD Jul 06, 2016 17:51
[2016-06-27] MEDS ORDERED: LACTULOSE SYRUP 20 GM/30 ML CUP PO ONE (17:15)
[2016-06-27 20:15] VITALS: BP 144/89; PULSE 117; RESP 19; TEMP 98.6; O2SAT 97
[2016-06-27] MEDS: FAMOTIDINE 20 MG TAB PO SCH (22:39)
[2016-06-27] MEDS: ALPRAZolam 0.5 MG TAB PO PRN (22:39)
[2016-06-27] MEDS: KETOROLAC TROMETHAMINE 30 MG/ML (IVP) VIAL IV PUSH SCH (22:39)
[2016-06-28 01:00] VITALS: BP 118/70; PULSE 86; RESP 18; TEMP 96; O2SAT 100
[2016-06-28] MEDS: ENOXAPARIN SODIUM 40 MG/0.4 ML SYRINGE SQ SCH (03:00)
[2016-06-28] MEDS: KETOROLAC TROMETHAMINE 30 MG/ML (IVP) VIAL IV PUSH SCH ×3 (04:25→21:10)
[2016-06-28 05:31] LABS: HEMATOCRIT 29.9 % (35.0-46.0); MEAN CELL VOLUME 81.6 FL (80.0-100.0); MEAN CORPUSCULAR HGB CONC 33.1 % (32.0-36.0); PLATELET COUNT 157 TH/MM3 (150-450); RED BLOOD COUNT 3.66 MIL/MM3 (4.00-5.30); RED CELL DISTRIBUTION WIDTH 18.5 % (11.6-17.2); REVIEW FLAG FINAL; WHITE BLOOD COUNT 11.1 TH/MM3 (4.0-11.0)
[2016-06-28] MEDS: METHOCARBAMOL 500 MG TAB PO SCH ×3 (05:40→21:10)
[2016-06-28] MEDS: GABAPENTIN 300 MG CAP PO SCH ×3 (05:40→21:10)
[2016-06-28] MEDS: INSULIN NovoLIN REGULAR SUPPLEMENTAL SCALE SQ SCH (06:00)
[2016-06-28 06:21] LABS: BICARBONATE 23.7 MEQ/L (21.0-32.0)
--- NOTE | 2016-06-28 06:48 | PD.ORT.PN ---
Subjective Subjective Remarks Pain controlled, no new complaints States the left clavicle hurts worse than the right Objective Vitals Vital Signs Date Time Temp Pulse Resp B/P Pulse Ox O2 Delivery O2 Flow Rate FiO2 06/28/16 01:00 96.0 86 18 118/70 100 06/27/16 20:15 98.6 117 19 144/89 97 06/27/16 16:00 97.2 108 16 142/83 98 06/27/16 11:43 97.1 97 16 151/87 97 06/27/16 09:27 94 21 06/27/16 07:25 97.3 94 16 152/83 92 I/O 06/27/16 06/27/16 06/27/16 06/28/16 06/28/16 06/28/16 07:00 15:00 23:00 07:00 15:00 23:00 Intake Total 490 ml 960 ml 480 ml 120 ml Balance 490 ml 960 ml 480 ml 120 ml Intake Oral 240 ml 960 ml 480 ml 120 ml Packed Cells 250 ml # Voids 1 4 2 0 # Bowel Movements 0 0 3 0 Result Diagram: 06/28/16 0504 06/28/16 0504 Imaging Last 24 hours Impressions Chest X-Ray 06/25/16 0600 Signed Impressions: Service Date/Time: Saturday, June 25, 2016 03:27 - CONCLUSION: 1. No acute findings. Previous endotracheal tube and nasogastric tube removed. Kareem Sousa MD Objective Remarks LUE: +coap splint. +sling. NVI with good function of radial nerve LLE: dressings clean and dry. intact. NVI RUE: pain over clavicle with palpation. NVI Assessment & Plan Assessment and Plan 1) Left Femoral Shaft fx s/p retrograde IMN - POD #4 -WBAT -daily dressing changes -work with PT 3) Left Distal Humeral Shaft Fx -maintain splint and sling at all times -NWB -plan for surgery on either Tues 2) Bilateral Clavicle and left scapula fxs -nonop -NWB X-rays bilateral clavicle today Nothing by mouth after midnight Hold Lovenox We'll evaluate new x-rays for decision on possible fixation of either clavicle CARTER STEWART PA-C Jun 28, 2016 06:48
[2016-06-28 07:19] VITALS: BP 121/75; PULSE 82; RESP 16; TEMP 96.5; O2SAT 100
[2016-06-28] MEDS: DOCUSATE SODIUM 50 MG/SENNA 8.6 MG TAB PO SCH ×2 (09:00→21:00)
[2016-06-28] MEDS: CHOLECALCIFEROL (VIT D3) 1000 UNIT TAB PO SCH (09:19)
[2016-06-28 11:59] VITALS: BP 153/96; PULSE 116; RESP 16; TEMP 97.7; O2SAT 98
[2016-06-28] MEDS: CALCIUM/VITAMIN D 250 MG/125 U TAB PO SCH ×2 (13:53→17:46)
--- NOTE | 2016-06-28 15:34 | RADRPT ---
EXAM DATE/TIME: 06/28/2016 14:07 [facility] COMPARISON: CLAVICLE LEFT, June 28, 2016, 9:53. INDICATIONS : Left arm pain. MEDICAL HISTORY : None. SURGICAL HISTORY : None. ENCOUNTER: Initial ACUITY: 1 day PAIN SCORE: 10/10 LOCATION: Left Humerus FINDINGS: The examination demonstrates a moderately angulated, comminuted fracture through the mid humerus. The examination also demonstrates linear fracture through the scapula which extends through the glenoid. There is a fracture of the clavicle as well. CONCLUSION: 1. Comminuted, moderately angulated fracture of the mid humerus. 2. Very minimally displaced fracture of the scapula with extension to the glenoid. 3. Fracture of the clavicle. Sky Muir MD on June 28, 2016 at 15:32 Board Certified Radiologist. This report was verified electronically.
[2016-06-28 16:05] VITALS: BP 152/76; PULSE 99; RESP 16; TEMP 96.5; O2SAT 100
--- NOTE | 2016-06-28 16:12 | RADRPT ---
EXAM DATE/TIME: 06/28/2016 09:52 [facility] COMPARISON: No previous studies available for comparison. INDICATIONS : Evaluate right clavicle fracture. MEDICAL HISTORY : None. SURGICAL HISTORY : None. ENCOUNTER: Subsequent ACUITY: 4 - 6 days PAIN SCORE: 8/10 LOCATION: Right clavicle. FINDINGS: Two view examination of the right clavicle demonstrates a simple but displaced right diaphyseal clavi cular fracture with approximately 8 mm of diastases. CONCLUSION: Right clavicular diaphyseal fracture as above. Oswaldo Funk MD on June 28, 2016 at 16:09 Board Certified Radiologist. This report was verified electronically.
--- NOTE | 2016-06-28 16:14 | RADRPT ---
EXAM DATE/TIME: 06/28/2016 09:53 [facility] COMPARISON: No previous studies available for comparison. INDICATIONS : Evaluate left clavicle fracture. MEDICAL HISTORY : None. SURGICAL HISTORY : None. ENCOUNTER: Subsequent ACUITY: 4 - 6 days PAIN SCORE: 8/10 LOCATION: Left clavicle. FINDINGS: Two view examination of the left clavicle demonstrates a diaphyseal fracture with the fracture fragme nts in bayonet apposition. Linear fracture through the scapula with extension to the glenoid articula ting surface. CONCLUSION: 1. Clavicular diaphyseal fracture with the fracture fragments in bayonet position. 2. Linear fracture through the left scapula with glenoid intra-articular extension. Oswaldo Funk MD on June 28, 2016 at 16:11 Board Certified Radiologist. This report was verified electronically.
--- NOTE | 2016-06-28 16:34 | HHI.PR ---
Subjective Subjective Notes Tearful today, states she is depressed Reports left arm pain Objective Vitals/I&O Vital Signs Date Time Temp Pulse Resp B/P Pulse Ox O2 Delivery O2 Flow Rate FiO2 06/28/16 11:59 97.7 116 16 153/96 98 06/27/16 09:27 21 06/25/16 21:46 Nasal Cannula 2.00 Labs Laboratory Tests Test 06/28/16 05:04 White Blood Count 11.1 Red Blood Count 3.66 Hemoglobin 9.9 Hematocrit 29.9 Mean Corpuscular Volume 81.6 Mean Corpuscular Hemoglobin 27.0 Mean Corpuscular Hemoglobin 33.1 Concent Red Cell Distribution Width 18.5 Platelet Count 157 Mean Platelet Volume 8.0 Sodium Level 142 Potassium Level 4.0 Chloride Level 110 Carbon Dioxide Level 23.7 Anion Gap 8 Blood Urea Nitrogen 8 Creatinine 0.47 Estimat Glomerular Filtration 138 Rate Random Glucose 95 Calcium Level 8.5 Radiology Last Impressions Chest X-Ray 06/25/16 0600 Signed Impressions: Service Date/Time: Saturday, June 25, 2016 03:27 - CONCLUSION: 1. No acute findings. Previous endotracheal tube and nasogastric tube removed. Kareem Sousa MD Femur X-Ray 06/24/16 0000 Signed Impressions: Service Date/Time: June 19:59 - CONCLUSION: Intramedullary kathleen placement across the mid to distal shaft fracture of the left femur. Normal alignment. Jaun Steele MD Chest CT 06/23/16 2019 Signed Impressions: Service Date/Time: Thursday, June 23, 2016 20:14 - CONCLUSION: Bilateral clavicular fractures and right scapular fracture identified. Mild dependent atelectatic changes are seen. Tadeo Benitez MD Pelvis X-Ray 06/23/161953 Signed Impressions: Service Date/Time: Thursday, June 23, 2016 19:57 - CONCLUSION: No acute disease. Tadeo Benitez MD Head CT 06/23/161953 Signed Impressions: Service Date/Time: Thursday, June 23, 2016 20:14 - CONCLUSION: No acute disease. Tadeo Benitez MD Cervical Spine CT 06/23/161953 Signed Impressions: Service Date/Time: Thursday, June 23, 2016 20:18 - CONCLUSION: No acute disease. Tadeo Benitez MD Abdomen/Pelvis CT 06/23/16 195 Signed Impressions: Service Date/Time: Thursday, June 23, 2016 20:14 - CONCLUSION: 1. Left ovarian cyst. 2. Liver cysts. Tadeo Benitez MD Humerus X-Ray 06/23/16 0000 Signed Impressions: Service Date/Time: Thursday, June 23, 2016 19:57 - CONCLUSION: Left humerus and scapular fractures. Tadeo Benitez MD Narrative Exam GENERAL: Adult female OOB in chair. SKIN: Warm and dry. HEAD: Normocephalic. ENT: No nasal bleeding or discharge. Mucous membranes pink and moist. NECK: Trachea midline. No JVD. CARDIOVASCULAR: Regular rate and rhythm. RESPIRATORY: No accessory muscle use. Lungs clear to auscultation. Breath sounds equal bilaterally. GASTROINTESTINAL: Abdomen soft, non-tender, nondistended. + BS. MUSCULOSKELETAL: Extremities without cyanosis, +2 edema left hand. Left arm soft cast in place with sling. NEUROLOGICAL: Awake and alert. Normal speech. A/P Assessment and Plan INJURIES: BILAT clavicle fx LEFT scapular fx (non-op) Aspiration LEFT femur fx LEFT humerus fx 06/24: ORIF LEFT femur PMHx: Anemia Diet: Regular, tolerating Pulm: IS, acapella, EZ pap. Duonebs. Pain: Roxicodone 10 q4, Dilaudid, Neurontin. Robaxin. IV Toradol. Activity: OOB. PT/OT evaluating. (WBAT LLE, NWB LUE) GI: Pepcid. Bowel: Corazon-colace 2 BID. No BM yet. DVT: Lovenox 40 QD, SCDs. Neuropsychologist consulted. Orthopedics plans to repair left humerus fracture tomorrow. Patient informed she will likely need rehabilitation at discharge and is interested in going to [facility]. Case management consulted for discharge planning. Plan to discharge when cleared by orthopedics. Plan of care discussed with patient at bedside. Jessika Lew Jun 28, 2016 16:33
[2016-06-28] MEDS: SODIUM CHLORIDE 0.9% FLUSH 5 ML FLUSH IVF PRN (17:48)
[2016-06-28 20:00] VITALS: BP 109/71; PULSE 106; RESP 16; TEMP 98.5; O2SAT 95
[2016-06-28] MEDS ORDERED: KETOROLAC TROMETHAMINE 10 MG TAB PO ONE (20:00)
[2016-06-28] MEDS: SODIUM CHLORIDE 0.9% FLUSH 5 ML FLUSH IVF SCH (21:10)
[2016-06-28] MEDS: FAMOTIDINE 20 MG TAB PO SCH (21:10)
[2016-06-28] MEDS: ALPRAZolam 0.5 MG TAB PO PRN (21:10)
[2016-06-29] VITALS: BP 107/71; PULSE 95; RESP 17; TEMP 97.7; O2SAT 95
[2016-06-29] MEDS ORDERED: INSULIN HUMAN REGULAR 1,000 UNITS/10 ML VIAL SQ PRN (00:15)
[2016-06-29] MEDS: SODIUM CHLORID 0.9% 500 ML IV SCH ×2 (01:00→12:09)
[2016-06-29] MEDS ORDERED: LACTATED RINGER'S 1000 ML IV SCH (01:00)
[2016-06-29 04:00] VITALS: BP 124/80; PULSE 93; RESP 16; TEMP 96.4; O2SAT 100
[2016-06-29] MEDS: KETOROLAC TROMETHAMINE 30 MG/ML (IVP) VIAL IV PUSH SCH ×2 (05:03→08:41)
[2016-06-29] MEDS: GABAPENTIN 300 MG CAP PO SCH ×3 (05:03→20:21)
[2016-06-29] MEDS: METHOCARBAMOL 500 MG TAB PO SCH ×3 (05:03→20:21)
[2016-06-29 06:10] LABS: HEMATOCRIT 29.5 % (35.0-46.0); MEAN CELL VOLUME 81.3 FL (80.0-100.0); MEAN CORPUSCULAR HEMOGLOBIN 27.2 PG (27.0-34.0); MEAN CORPUSCULAR HGB CONC 33.5 % (32.0-36.0); PLATELET COUNT 194 TH/MM3 (150-450); RED BLOOD COUNT 3.63 MIL/MM3 (4.00-5.30); RED CELL DISTRIBUTION WIDTH 17.6 % (11.6-17.2); WHITE BLOOD COUNT 9.5 TH/MM3 (4.0-11.0)
[2016-06-29 06:14] LABS: REVIEW FLAG FINAL
[2016-06-29 06:34] LABS: BICARBONATE 25.1 MEQ/L (21.0-32.0); POTASSIUM 3.8 MEQ/L (3.5-5.1)
--- NOTE | 2016-06-29 06:48 | PD.ORT.PN ---
Subjective Subjective Remarks Pain controlled, no new complaints States the left clavicle hurts worse than the right Objective Vitals Vital Signs Date Time Temp Pulse Resp B/P Pulse Ox O2 Delivery O2 Flow Rate FiO2 06/29/16 04:00 96.4 93 16 124/80 100 06/29/16 00:00 97.7 95 17 107/71 95 06/28/16 20:00 98.5 106 16 109/71 95 06/28/16 16:05 96.5 99 16 152/76 100 06/28/16 15:00 16 06/28/16 11:59 97.7 116 16 153/96 98 06/28/16 07:19 96.5 82 16 121/75 100 I/O 06/28/16 06/28/16 06/28/16 06/29/16 06/29/16 06/29/16 07:00 15:00 23:00 07:00 15:00 23:00 Intake Total 120 ml 960 ml 240 ml 0 ml Balance 120 ml 960 ml 240 ml 0 ml Intake Oral 120 ml 960 ml 240 ml 0 ml # Voids 0 3 1 1 # Bowel Movements 0 0 0 0 Result Diagram: 06/29/16 0525 06/29/16 0525 Imaging Last 24 hours Impressions Chest X-Ray 06/25/16 0600 Signed Impressions: Service Date/Time: Saturday, June 25, 2016 03:27 - CONCLUSION: 1. No acute findings. Previous endotracheal tube and nasogastric tube removed. Kareem Sousa MD Objective Remarks LUE: +coap splint. +sling. NVI with good function of radial nerve LLE: dressings clean and dry. intact. NVI RUE: pain over clavicle with palpation. NVI Assessment & Plan Assessment and Plan 1) Left Femoral Shaft fx s/p retrograde IMN - POD #5 -WBAT -daily dressing changes -work with PT 3) Left Distal Humeral Shaft Fx -maintain splint and sling at all times -NWB -plan for surgery on today 2) Bilateral Clavicle and left scapula fxs -NWB X-rays bilateral clavicle shows significant displacement and instability Nothing by mouth Hold Lovenox Surgery today for left humerus and bilateral clavicles-open reduction internal fixation Dar Juares Jr. Jun 29, 2016 06:47
[2016-06-29 08:00] VITALS: BP 154/84; PULSE 125; RESP 18; TEMP 97; O2SAT 93
[2016-06-29] MEDS: CHOLECALCIFEROL (VIT D3) 1000 UNIT TAB PO SCH (08:41)
[2016-06-29] MEDS: SODIUM CHLORIDE 0.9% FLUSH 5 ML FLUSH IVF SCH ×2 (08:41→20:21)
[2016-06-29] MEDS: CALCIUM/VITAMIN D 250 MG/125 U TAB PO SCH ×3 (08:41→17:08)
[2016-06-29] MEDS: DOCUSATE SODIUM 50 MG/SENNA 8.6 MG TAB PO SCH ×2 (08:41→20:21)
--- NOTE | 2016-06-29 09:59 | EKG ---
Date Performed: 06/29/2016 Time Performed: 08:14:40 PTAGE: 51 years EKG: Sinus rhythm SEPTAL MYOCARDIAL INFARCTION , OF INDETERMINATE AGE ABNORMAL ECG NO PREVIOUS TRACING DOCTOR: Amaury Méndez Interpretating Date/Time 06/29/2016 09:57:29
[2016-06-29] MEDS ORDERED: GENTAMICIN SULFATE 80 MG/2 ML VIAL ONE (11:55)
[2016-06-29] MEDS ORDERED: SODIUM CHLOR 0.9% 250 ML INJ 250 ML ONE (11:55)
[2016-06-29] MEDS ORDERED: ceFAZolin INJ 1,000 MG VIAL ONE (11:55)
[2016-06-29] MEDS ORDERED: VANCOMYCIN HCL 1000 MG VIAL ONE ×2 (11:55→12:53)
[2016-06-29] MEDS ORDERED: BUPIVACAINE/EPINEPHRINE 0.25% PF 10 ML VIAL ONE (11:55)
[2016-06-29 12:00] VITALS: BP 117/85; PULSE 78; RESP 16; TEMP 97; O2SAT 100
[2016-06-29] MEDS ORDERED: ONDANSETRON HCL 4 MG/2 ML VIAL IV PUSH ONE (12:36)
[2016-06-29] MEDS ORDERED: PROPOFOL 200 MG/20 ML AMP IV ONE (12:36)
[2016-06-29] MEDS ORDERED: ePHEDrine/NS 25 MG/5 ML SYR IV ONE (12:36)
[2016-06-29] MEDS ORDERED: LACTATED RINGER'S 1000 ML INJ 1,000 ML IV ONE (12:36)
[2016-06-29] MEDS ORDERED: MIDAZOLAM HCL 2 MG/2 ML VIAL ONE (12:44)
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
[2016-06-29] MEDS ORDERED: ceFAZolin 2 GM PREMIX 50 ML ONE (12:53)
[2016-06-29] MEDS ORDERED: SODIUM CHLORIDE 0.9% FLUSH 5 ML FLUSH IVF PRN (14:30)
--- NOTE | 2016-06-29 14:34 | PD.OP ---
cc: Ryan Cadet MD Operative Report Date of Surgery: Jun 29, 2016 Preoperative Diagnosis: Comminuted left humerus shaft fracture, left clavicle fracture, left scapula fracture, right clavicle fracture Postoperative Diagnosis: Procedure: Open reduction internal fixation left humerus shaft fracture Open reduction internal fixation left clavicle fracture Open reduction internal fixation right clavicle fracture Surgeon: Ryan Cadet Distribution A Class Lineman(s): Kamlesh Juares PA-C The surgical procedure was assisted by my physician social services assistant. My P.A. presence was necessary throughout this case for the manipulation and positioning of the surgical extremity. My P.A. was assisting me throughout the duration of this procedure. The skill set of a physician social services assistant was medically necessary to complete this procedure. During the surgical case the instructor adjunct surgical technician was working at the back table and the physician social services assistant was directly assisting me. Operation and Findings: Patient was seen and evaluated preoperatively. Treatment options were discussed regarding humerus fracture and clavicle fractures including surgical and nonsurgical treatments. After detailed discussion of risk and benefits of procedure patient wishes to proceed with surgery. Risks of surgery include bleeding, infection, nonunion, malunion, painful hardware, loss of motion of shoulder and elbow, weakness and numbness of arm, as well as medical competitions including blood clots stroke and . Patient was brought to operating room and placed on the OR table. GETA was administered by anesthesiologist. Patient was positioned in lateral decubitus position. Extremities were well-padded. Axillary roll was placed. Operative arm and shoulder were prepped with alcohol followed by Hibiclens and draped usual sterile fashion. Timeout procedure was performed. IV antibiotics were given prior to incision. A standard posterior approach was utilized. Subcutaneous tissues was dissected with Bovie. The triceps muscle was split midline. The radial nerve was identified and protected throughout the procedure. The nerve was intact. The fracture was identified. Soft tissue was removed from the fracture site. Fracture site was cleaned with curettes. At this point the fracture was reduced using fracture tenaculums. Multiplanar fluoroscopy confirmed excellent of fracture. K wires were used to hold provisional fixation. Additional 2.7 cortical lag screws were used to compress fracture fragments. There was significant comminution of the humerus. A Synthes 3.5 hockey stick plate was contoured to fit the humerus. Plate was provisionally held the bone with K wires. 3.5 cortical screws were placed on each side of the fracture. The screws were placed to add compression to fracture. Multiple screws were placed in each side of the fracture. All screws were predrilled and premeasured for appropriate length. Final fluoroscopy revealed excellent alignment of fracture with well-placed hardware. Incision was thoroughly irrigated. Fascia was closed with #1 Vicryl, subcutaneous tissues closed with 3-0 Vicryl, and skin was closed with regan. Sterile dressings were applied. Farzaneh was now repositioned. She was placed supine on a Kg table. The left arm and bilateral clavicle region was prepped with alcohol followed by Hibiclens and draped usual sterile fashion. Procedure began with a 5 inch incision over the anterior left clavicle. Subcutaneous tissue was dissected with Bovie. The fracture was now visualized. Soft tissue was retracted. Fracture was cleaned with curettes. Attention was now turned to reduction. Gentle traction was applied and fracture tenaculums were used to reduce the fracture. Fracture was manipulated to achieve excellent reduction. Multiplanar fluoroscopy confirmed well aligned fracture. K wires were used to hold provisional fixation. Fracture keyed in anatomic alignment. A 2.7 cortical lag screw was used to compress fracture. A Synthes clavicle plate was selected. Plate was provisionally held in place K wires. 3.5 cortical screws were used to compress plate to bone. Fluoroscopy confirmed appropriate plate placement and fracture reduction. Multiple screws were placed on each side of the fracture. All Screws were predrilled and premeasured for appropriate length. Care was taken to avoid injury to neurovascular structures. Final fluoroscopy revealed well aligned fracture with well-placed hardware. Wound was thoroughly irrigated. Fascia was closed with #1 Vicryl, subcutaneous tissues closed with 3-0 Vicryl, and skin was closed with regan. Next attention was turned towards the right clavicle. A 4 inch incision over the anterior left clavicle. Subcutaneous tissue was dissected with Bovie. The fracture was now visualized. Soft tissue was retracted. Fracture was cleaned with curettes. Attention was now turned to reduction. Gentle traction was applied and fracture tenaculums were used to reduce the fracture. Fracture was manipulated to achieve excellent reduction. Multiplanar fluoroscopy confirmed well aligned fracture. K wires were used to hold provisional fixation. A Synthes clavicle plate was selected. Plate was provisionally held in place K wires. 3.5 cortical screws were used to compress plate to bone. Fluoroscopy confirmed appropriate plate placement and fracture reduction. Multiple screws were placed on each side of the fracture. All Screws were predrilled and premeasured for appropriate length. Care was taken to avoid injury to neurovascular structures. Final fluoroscopy revealed well aligned fracture with well-placed hardware. Wound was thoroughly irrigated. Fascia was closed with #1 Vicryl, subcutaneous tissues closed with 3-0 Vicryl, and skin was closed with regan. Sterile dressings were applied. Patient was placed into a sling. Patient was awakened and transferred to recovery in stable condition. Needle and sponge counts were correct. Ryan Cadet MD Jun 29, 2016 14:34
--- NOTE | 2016-06-29 15:01 | HHI.PR ---
Subjective Subjective Notes S/P bilateral clavicle ORIF and LEFT humerus ORIF. Objective Vitals/I&O Vital Signs Date Time Temp Pulse Resp B/P Pulse Ox O2 Delivery O2 Flow Rate FiO2 06/29/16 08:00 97.0 125 18 154/84 93 06/27/16 09:27 21 06/25/16 21:46 Nasal Cannula 2.00 Labs Laboratory Tests Test 06/29/16 05:25 White Blood Count 9.5 Red Blood Count 3.63 Hemoglobin 9.9 Hematocrit 29.5 Mean Corpuscular Volume 81.3 Mean Corpuscular Hemoglobin 27.2 Mean Corpuscular Hemoglobin 33.5 Concent Red Cell Distribution Width 17.6 Platelet Count 194 Mean Platelet Volume 7.9 Sodium Level 142 Potassium Level 3.8 Chloride Level 109 Carbon Dioxide Level 25.1 Anion Gap 8 Blood Urea Nitrogen 9 Creatinine 0.42 Estimat Glomerular Filtration 193 Rate Random Glucose 89 Calcium Level 8.4 Radiology Last Impressions Chest X-Ray 06/25/16 0600 Signed Impressions: Service Date/Time: Saturday, June 25, 2016 03:27 - CONCLUSION: 1. No acute findings. Previous endotracheal tube and nasogastric tube removed. Kareem Sousa MD Femur X-Ray 06/24/16 0000 Signed Impressions: Service Date/Time: June 19:59 - CONCLUSION: Intramedullary kathleen placement across the mid to distal shaft fracture of the left femur. Normal alignment. Jaun Steele MD Chest CT 06/23/16 2019 Signed Impressions: Service Date/Time: Thursday, June 23, 2016 20:14 - CONCLUSION: Bilateral clavicular fractures and right scapular fracture identified. Mild dependent atelectatic changes are seen. Tadeo Benitez MD Pelvis X-Ray 06/23/161953 Signed Impressions: Service Date/Time: Thursday, June 23, 2016 19:57 - CONCLUSION: No acute disease. Tadeo Benitez MD Head CT 06/23/161953 Signed Impressions: Service Date/Time: Thursday, June 23, 2016 20:14 - CONCLUSION: No acute disease. Tadeo Benitez MD Cervical Spine CT 06/23/161953 Signed Impressions: Service Date/Time: Thursday, June 23, 2016 20:18 - CONCLUSION: No acute disease. Tadeo Benitez MD Abdomen/Pelvis CT 06/23/16 195 Signed Impressions: Service Date/Time: Thursday, June 23, 2016 20:14 - CONCLUSION: 1. Left ovarian cyst. 2. Liver cysts. Tadeo Benitez MD Humerus X-Ray 06/23/16 0000 Signed Impressions: Service Date/Time: Thursday, June 23, 2016 19:57 - CONCLUSION: Left humerus and scapular fractures. Tadeo Benitez MD A/P Assessment and Plan INJURIES: BILAT clavicle fx LEFT scapular fx (non-op) Aspiration LEFT femur fx LEFT humerus fx 06/24: ORIF LEFT femur 06/29: ORIF BILAT clavicles and ORIF LEFT humerus PMHx: Anemia Diet: Regular, tolerating Pulm: IS, acapella, EZ pap. Duonebs. Pain: Roxicodone 10 q4, Dilaudid, Neurontin. Robaxin. IV Toradol. Activity: OOB. PT/OT evaluating. (WBAT LLE, NWB LUE) GI: Pepcid. Bowel: Corazon-colace 2 BID. No BM yet. DVT: Lovenox 40 QD, SCDs. Neuropsychologist consulted. Patient informed she will likely need rehabilitation at discharge and is interested in going to [facility]. Case management consulted for discharge planning. Plan to discharge when cleared by orthopedics. Plan of care discussed with patient at bedside. Jessika Lew Jun 29, 2016 15:01
[2016-06-29] MEDS ORDERED: fentaNYL CITRATE 250 MCG/5 ML AMP ONE ×2 (15:06→15:07)
--- NOTE | 2016-06-29 15:52 | RADRPT ---
EXAM DATE/TIME: 06/29/2016 14:12 [facility] COMPARISON: FLUOROSCOPY PORTABLE UP TO 1HR, June 29, 2016, 0:00. INDICATIONS : ORIF left humerus. MEDICAL HISTORY : None. SURGICAL HISTORY : None. ENCOUNTER: Subsequent ACUITY: 4 - 6 days PAIN SCORE: Non-responsive. LOCATION: Left humerus. FINDINGS: The examination demonstrates a plate and multiple screws across the patient's humeral fracture. Align ment post plating is excellent. CONCLUSION: Excellent alignment of the patient's humeral fracture post plating. Sky Muir MD on June 29, 2016 at 15:50 Board Certified Radiologist. This report was verified electronically.
[2016-06-29] MEDS ORDERED: DO NOT ADM ANY ANTICOAGULANT DRUGS XX PRN (16:12)
[2016-06-29] MEDS ORDERED: *HYDROmorphone PF 1 MG VIAL PERIprocedural Use ONLY ONE (16:31)
[2016-06-29] MEDS: MORPHINE SULFATE 4 MG/ML INJ IV PUSH PRN ×3 (17:08→23:23)
[2016-06-29 17:16] VITALS: BP 119/93; PULSE 100; RESP 18; TEMP 96.1; O2SAT 97
[2016-06-29] MEDS: ACETAMINOPHEN/HYDROcodone 325 MG/10 MG TAB PO PRN ×2 (18:16→22:03)
--- NOTE | 2016-06-29 19:06 | RADRPT ---
EXAM DATE/TIME: 06/29/2016 15:16 [facility] COMPARISON: No previous studies available for comparison. INDICATIONS : ORIF right clavicle. MEDICAL HISTORY : None. SURGICAL HISTORY : None. ENCOUNTER: Subsequent ACUITY: 1 week PAIN SCORE: Non-responsive. LOCATION: Right upper extremity FINDINGS: Examination reveals plating of a right clavicle fracture with satisfactory reduction of fracture frag ments. Hardware is intact. CONCLUSION: Satisfactory appearance post ORIF right clavicle Jaun Espana MD on June 29, 2016 at 19:04 Board Certified Radiologist. This report was verified electronically.
--- NOTE | 2016-06-29 19:06 | RADRPT ---
EXAM DATE/TIME: 06/29/2016 15:16 [facility] COMPARISON: No previous studies available for comparison. INDICATIONS : ORIF left clavicle. MEDICAL HISTORY : None. SURGICAL HISTORY : None. ENCOUNTER: Subsequent ACUITY: 1 week PAIN SCORE: Non-responsive. LOCATION: Left upper extremity FINDINGS: Examination reveals plate fixation of left clavicle fracture with good reduction of fragments and res toration of anatomic alignment. Hardware is intact. CONCLUSION: Satisfactory appearance post ORIF left clavicle fracture Jaun Espana MD on June 29, 2016 at 19:05 Board Certified Radiologist. This report was verified electronically.
[2016-06-29 19:33] VITALS: BP 123/82; PULSE 96; RESP 16; TEMP 96.2; O2SAT 99
[2016-06-29] MEDS: ceFAZolin 2 GM PREMIX 50 ML IV SCH (20:20)
[2016-06-29] MEDS: FAMOTIDINE 20 MG TAB PO SCH (20:21)
[2016-06-29] MEDS: ALPRAZolam 0.5 MG TAB PO PRN (22:03)
[2016-06-30] VITALS: BP 131/88; PULSE 94; RESP 16; TEMP 96.9; O2SAT 95
[2016-06-30] MEDS: ACETAMINOPHEN/HYDROcodone 325 MG/10 MG TAB PO PRN ×2 (01:24→04:41)
[2016-06-30] MEDS: HYDROmorphone HCL PF 1 MG/ML VIAL IV PUSH PRN ×4 (02:24→17:54)
[2016-06-30 04:00] VITALS: BP 128/92; PULSE 98; RESP 17; TEMP 96.3; O2SAT 96
[2016-06-30] MEDS: METHOCARBAMOL 500 MG TAB PO SCH ×3 (04:41→21:04)
[2016-06-30] MEDS: GABAPENTIN 300 MG CAP PO SCH ×2 (04:41→12:47)
[2016-06-30] MEDS: ceFAZolin 2 GM PREMIX 50 ML IV SCH ×2 (04:42→12:46)
[2016-06-30 06:16] LABS: HEMATOCRIT 27.9 % (35.0-46.0); MEAN CELL VOLUME 81.4 FL (80.0-100.0); MEAN CORPUSCULAR HEMOGLOBIN 27.4 PG (27.0-34.0); MEAN CORPUSCULAR HGB CONC 33.7 % (32.0-36.0); PLATELET COUNT 250 TH/MM3 (150-450); RED BLOOD COUNT 3.43 MIL/MM3 (4.00-5.30); RED CELL DISTRIBUTION WIDTH 17.6 % (11.6-17.2); REVIEW FLAG FINAL; WHITE BLOOD COUNT 14.4 TH/MM3 (4.0-11.0)
[2016-06-30 06:47] LABS: BICARBONATE 25.3 MEQ/L (21.0-32.0); POTASSIUM 4.1 MEQ/L (3.5-5.1)
--- NOTE | 2016-06-30 07:51 | PD.ORT.PN ---
Subjective Subjective Remarks POD 6 s/p IMN left femur POD 1 s/p ORIF left distal humerus and bilateral reports pain in bilateral shoulders this morning. Objective Vitals Vital Signs Date Time Temp Pulse Resp B/P Pulse Ox O2 Delivery O2 Flow Rate FiO2 06/30/16 04:00 96.3 98 17 128/92 96 06/30/16 00:00 96.9 94 16 131/88 95 06/29/16 19:33 96.2 96 16 123/82 99 06/29/16 17:16 96.1 100 18 119/93 97 06/29/16 16:40 111 16 126/97 100 Room Air 06/29/16 16:30 113 16 141/96 98 Room Air 06/29/16 16:15 97.4 114 15 138/91 96 Room Air 06/29/16 12:00 97.0 78 16 117/85 100 06/29/16 08:00 97.0 125 18 154/84 93 I/O 06/29/16 06/29/16 06/29/16 06/30/16 06/30/16 06/30/16 07:00 15:00 23:00 07:00 15:00 23:00 Intake Total 0 ml 1440 ml 240 ml Output Total 100 ml Balance 0 ml 1340 ml 240 ml Intake Oral 0 ml 240 ml 240 ml Other 1200 ml Estimated Blood Loss 100 ml # Voids 1 3 1 4 # Bowel Movements 0 0 0 0 Result Diagram: 06/30/16 0520 06/30/16 0520 Imaging Last 24 hours Impressions Chest X-Ray 06/25/16 0600 Signed Impressions: Service Date/Time: Saturday, June 25, 2016 03:27 - CONCLUSION: 1. No acute findings. Previous endotracheal tube and nasogastric tube removed. Kareem Sousa MD Objective Remarks LUE: dressings clean and dry. intact. +sling. radial nerve palsy present. full sensation to median/ulnar nerve distribution RUE: dressings clean and dry. intact. NVI LLE: drsesings clean and dry. intact. NVI Assessment & Plan Assessment and Plan 1) Left Femoral Shaft fx s/p retrograde IMN - POD #6 -WBAT -daily dressing changes -work with PT 3) Left Distal Humeral Shaft Fx s/p ORIF - POD 1 -NWB -daily dressing changes POD 2 -maintain sling -PT for ROM of elbow 2) Bilateral Clavicle and left scapula fxs s/p ORIF clavicles - POD 1 -NWB -daily dressing changes POD 2 3) Radial Nerve Palsy left wrist -will order cockup wrist brace today to help prevent contractures of forearm -CM for rehab placement -f/u with Dr Cadet or PA in 2 weeks Juni Wiley Jun 30, 2016 07:51
[2016-06-30] MEDS ORDERED: XARE10TA PO (07:53)
[2016-06-30] MEDS ORDERED: PERC10TA27 PO (07:53)
[2016-06-30 08:00] VITALS: BP 134/83; PULSE 92; RESP 18; TEMP 97.3; O2SAT 95
[2016-06-30] MEDS: MAGNESIUM HYDROXIDE SUSP 30 ML CUP PO PRN ×2 (08:00→21:04)
[2016-06-30] MEDS: SODIUM CHLORIDE 0.9% FLUSH 5 ML FLUSH IVF SCH ×2 (08:01→21:07)
[2016-06-30] MEDS: CHOLECALCIFEROL (VIT D3) 1000 UNIT TAB PO SCH (08:01)
[2016-06-30] MEDS: CALCIUM/VITAMIN D 250 MG/125 U TAB PO SCH ×3 (08:01→17:54)
[2016-06-30] MEDS: DOCUSATE SODIUM 50 MG/SENNA 8.6 MG TAB PO SCH ×2 (08:01→21:04)
[2016-06-30] MEDS: SERTRALINE HCL 100 MG TAB PO SCH (10:38)
[2016-06-30 12:00] VITALS: BP 114/77; PULSE 104; RESP 18; TEMP 96.9; O2SAT 98
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
--- NOTE | 2016-06-30 14:38 | HHI.PR ---
Subjective Subjective Notes Complaints of bilateral clavicle pain. Reports she walked in room Objective Vitals/I&O Vital Signs Date Time Temp Pulse Resp B/P Pulse Ox O2 Delivery O2 Flow Rate FiO2 06/30/16 12:00 96.9 104 18 114/77 98 06/29/16 16:40 Room Air 06/27/16 09:27 21 Labs Laboratory Tests Test 06/30/16 05:20 White Blood Count 14.4 Red Blood Count 3.43 Hemoglobin 9.4 Hematocrit 27.9 Mean Corpuscular Volume 81.4 Mean Corpuscular Hemoglobin 27.4 Mean Corpuscular Hemoglobin 33.7 Concent Red Cell Distribution Width 17.6 Platelet Count 250 Mean Platelet Volume 7.9 Sodium Level 141 Potassium Level 4.1 Chloride Level 106 Carbon Dioxide Level 25.3 Anion Gap 10 Blood Urea Nitrogen 10 Creatinine 0.59 Estimat Glomerular Filtration 131 Rate Random Glucose 110 Calcium Level 8.7 Radiology Last Impressions Chest X-Ray 06/25/16 0600 Signed Impressions: Service Date/Time: Saturday, June 25, 2016 03:27 - CONCLUSION: 1. No acute findings. Previous endotracheal tube and nasogastric tube removed. Kareem Sousa MD Femur X-Ray 06/24/16 0000 Signed Impressions: Service Date/Time: June 19:59 - CONCLUSION: Intramedullary kathleen placement across the mid to distal shaft fracture of the left femur. Normal alignment. Jaun Steele MD Chest CT 06/23/16 2019 Signed Impressions: Service Date/Time: Thursday, June 23, 2016 20:14 - CONCLUSION: Bilateral clavicular fractures and right scapular fracture identified. Mild dependent atelectatic changes are seen. Tadeo Benitez MD Pelvis X-Ray 06/23/161953 Signed Impressions: Service Date/Time: Thursday, June 23, 2016 19:57 - CONCLUSION: No acute disease. Tadeo Benitez MD Head CT 06/23/161953 Signed Impressions: Service Date/Time: Thursday, June 23, 2016 20:14 - CONCLUSION: No acute disease. Tadeo Benitez MD Cervical Spine CT 06/23/161953 Signed Impressions: Service Date/Time: Thursday, June 23, 2016 20:18 - CONCLUSION: No acute disease. Tadeo Benitez MD Abdomen/Pelvis CT 06/23/16 195 Signed Impressions: Service Date/Time: Thursday, June 23, 2016 20:14 - CONCLUSION: 1. Left ovarian cyst. 2. Liver cysts. Tadeo Benitez MD Humerus X-Ray 06/23/16 0000 Signed Impressions: Service Date/Time: Thursday, June 23, 2016 19:57 - CONCLUSION: Left humerus and scapular fractures. Tadeo Benitez MD Narrative Exam GENERAL: 51-year-old well-nourished well-developed female lying in bed with ice packs on clavicles. SKIN: Warm and dry. HEAD: Normocephalic. ENT: No nasal bleeding or discharge. Mucous membranes pink and moist. NECK: Trachea midline. No JVD. CARDIOVASCULAR: Regular rate and rhythm. RESPIRATORY: No accessory muscle use. Lungs clear to auscultation. Breath sounds equal bilaterally. GASTROINTESTINAL: Abdomen soft, non-tender, nondistended. + BS. MUSCULOSKELETAL: Extremities without cyanosis, +2 edema left hand. Left arm soft cast in place with sling. NEUROLOGICAL: Awake and alert. Normal speech. A/P Assessment and Plan INJURIES: BILAT clavicle fx LEFT scapular fx (non-op) Aspiration LEFT femur fx LEFT humerus fx 06/24: ORIF LEFT femur 06/29: ORIF BILAT clavicles ORIF LEFT humerus PMHx: Anemia Diet: Regular, tolerating Pulm: IS, acapella, EZ pap. Duonebs. Pain: Roxicodone 10 q4, Dilaudid, IV Toradol. Increased Neurontin & Robaxin for better pain control. Activity: OOB. PT/OT ordered. (WBAT LLE, NWB LUE). Patient has been OOB with assist. GI: Pepcid. Bowel: Corazon-colace 2 BID. LBM 06/28 DVT: Lovenox 40 QD, SCDs. Orthopedics plans to clear patient for discharge tomorrow. Case management consulted for discharge planning. [facility] evaluating for placement. Plan of care discussed with patient at bedside. Jessika Lew Jun 30, 2016 14:38
[2016-06-30 16:23] VITALS: BP 121/81; PULSE 101; RESP 16; TEMP 96.8; O2SAT 98
[2016-06-30 19:35] VITALS: BP 145/84; PULSE 97; RESP 16; TEMP 98.1; O2SAT 99
[2016-06-30] MEDS: traZODone HCL 50 MG TAB PO SCH (21:00)
[2016-06-30] MEDS: ALPRAZolam 0.5 MG TAB PO PRN (21:04)
[2016-06-30] MEDS: FAMOTIDINE 20 MG TAB PO SCH (21:04)
[2016-06-30] MEDS: GABAPENTIN 400 MG CAP PO SCH (21:05)
[2016-07-01] VITALS: BP 140/81; PULSE 102; RESP 16; TEMP 98.2; O2SAT 98
[2016-07-01] MEDS: traZODone HCL 50 MG TAB PO SCH (00:01)
[2016-07-01] MEDS: HYDROmorphone HCL PF 1 MG/ML VIAL IV PUSH PRN (00:02)
[2016-07-01] MEDS: ENOXAPARIN SODIUM 40 MG/0.4 ML SYRINGE SQ SCH (01:58)
[2016-07-01 04:00] VITALS: BP 111/79; PULSE 101; RESP 17; TEMP 96.6; O2SAT 98
[2016-07-01] MEDS: GABAPENTIN 400 MG CAP PO SCH ×2 (06:25→13:38)
[2016-07-01] MEDS: METHOCARBAMOL 500 MG TAB PO SCH ×2 (06:25→13:38)
--- NOTE | 2016-07-01 06:48 | PD.ORT.PN ---
Subjective Subjective Remarks Pain controlled, no new complaints Objective Vitals Vital Signs Date Time Temp Pulse Resp B/P Pulse Ox O2 Delivery O2 Flow Rate FiO2 07/01/16 04:00 96.6 101 17 111/79 98 07/01/16 00:00 98.2 102 16 140/81 98 06/30/16 19:35 98.1 97 16 145/84 99 06/30/16 16:23 96.8 101 16 121/81 98 06/30/16 12:00 96.9 104 18 114/77 98 06/30/16 08:00 97.3 92 18 134/83 95 I/O 06/30/16 06/30/16 06/30/16 07/01/16 07/01/16 07/01/16 07:00 15:00 23:00 07:00 15:00 23:00 Intake Total 240 ml 720 ml 240 ml Balance 240 ml 720 ml 240 ml Intake Oral 240 ml 720 ml 240 ml # Voids 4 4 2 # Bowel Movements 0 1 1 Result Diagram: 06/30/1620 06/30/16 0520 Imaging Last 24 hours Impressions Chest X-Ray 06/25/16 0600 Signed Impressions: Service Date/Time: Saturday, June 25, 2016 03:27 - CONCLUSION: 1. No acute findings. Previous endotracheal tube and nasogastric tube removed. Kareem Sousa MD Objective Remarks LUE: dressings clean and dry. intact. +sling. radial nerve palsy present. full sensation to median/ulnar nerve distribution RUE: dressings clean and dry. intact. NVI LLE: dressings clean and dry. intact. NVI Assessment & Plan Assessment and Plan 1) Left Femoral Shaft fx s/p retrograde IMN - POD #7 -WBAT -daily dressing changes -work with PT 3) Left Distal Humeral Shaft Fx s/p ORIF - POD 2 -NWB -daily dressing changes -maintain sling -PT for ROM of elbow 2) Bilateral Clavicle and left scapula fxs s/p ORIF clavicles - POD 2 -NWB -daily dressing changes Lovenox then convert to Xarelto after discharge Follow-up with Dr. Cadet or [place] in 2 weeks 3) Radial Nerve Palsy left wrist -will order cockup wrist brace today to help prevent contractures of forearm -CM for rehab placement -f/u with Dr Cadet or [place] in 2 weeks Dar Juares Jr. Jul 01, 2016 06:48
[2016-07-01 08:04] VITALS: BP 111/70; PULSE 108; RESP 18; TEMP 98.3; O2SAT 98
[2016-07-01] MEDS: DOCUSATE SODIUM 50 MG/SENNA 8.6 MG TAB PO SCH (08:05)
[2016-07-01] MEDS: SODIUM CHLORIDE 0.9% FLUSH 5 ML FLUSH IVF SCH (08:05)
[2016-07-01] MEDS: SERTRALINE HCL 100 MG TAB PO SCH (08:05)
[2016-07-01] MEDS: CHOLECALCIFEROL (VIT D3) 1000 UNIT TAB PO SCH (08:05)
[2016-07-01] MEDS: CALCIUM/VITAMIN D 250 MG/125 U TAB PO SCH ×2 (08:05→13:38)
[2016-07-01 11:34] LABS: HEMATOCRIT 26.9 % (35.0-46.0); MEAN CELL VOLUME 81.9 FL (80.0-100.0); MEAN CORPUSCULAR HEMOGLOBIN 27.2 PG (27.0-34.0); MEAN CORPUSCULAR HGB CONC 33.1 % (32.0-36.0); PLATELET COUNT 292 TH/MM3 (150-450); RED BLOOD COUNT 3.29 MIL/MM3 (4.00-5.30); REVIEW FLAG FINAL; WHITE BLOOD COUNT 16.3 TH/MM3 (4.0-11.0)
[2016-07-01 12:05] VITALS: BP 124/76; PULSE 98; RESP 16; TEMP 97.4; O2SAT 97
[2016-07-01] MEDS: ALPRAZolam 0.5 MG TAB PO PRN (13:38)
[2016-07-01 15:00] VITALS: BP 128/89; PULSE 110; RESP 18; TEMP 97.8; O2SAT 100
[2016-07-01] MEDS ORDERED: METH500T3 PO (15:19)
[2016-07-01] MEDS ORDERED: HYDR-3583 PO (15:19)
[2016-07-01] MEDS ORDERED: ENOX40P SQ (15:19)
[2016-07-01] MEDS ORDERED: ZOLO100T PO (15:19)
[2016-07-01] MEDS ORDERED: SENN1TAB PO (15:19)
[2016-07-01] MEDS ORDERED: OYST250T4 PO (15:19)
[2016-07-01] MEDS ORDERED: VITA100018 PO (15:19)
[2016-07-01] MEDS ORDERED: NEUR400C PO (15:19)
[2016-07-01] MEDS ORDERED: TRAZ50TA12 PO (15:19)
[2016-07-01] MEDS ORDERED: OXYC-392 PO (15:19)
[2016-07-01] MEDS ORDERED: ALPR.5 PO (15:19)
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
[2016-07-14] MEDS ORDERED: DOCU1CAP39 PO (11:13)
[2016-07-14] MEDS ORDERED: NEUR400C PO (11:13)
[2016-07-14] MEDS ORDERED: OYST250T4 PO (11:13)
[2016-07-14] MEDS ORDERED: ZOLO100T PO (11:13)
[2016-07-14] MEDS ORDERED: TRAZ50TA12 PO (11:13)
[2016-07-14] MEDS ORDERED: XARE10TA PO (11:13)
[2016-07-14] MEDS ORDERED: ALPR.5 PO (11:13)
[2016-07-14] MEDS ORDERED: VITA100018 PO (11:13)
[2016-07-14] MEDS ORDERED: PERC5TAB12 PO (11:13)
[2016-07-14] MEDS ORDERED: METH500T3 PO (11:13)
[2016-07-14] MEDS ORDERED: COMMODE 3-IN-11 MIS (14:49)
[2016-07-14] MEDS ORDERED: WHEEMIS3 (14:49)
[2016-09-08] MEDS ORDERED: OXYC1TAB36 PO (11:59)
[2016-10-05] MEDS ORDERED: OXYC1TAB36 PO (14:03)
== END 2016-07-01 17:30 | DRG 480 ==
LOC: NEPI 19:49 → NEDA 20:15 → EDBD 20:15 → N03A 20:39 → N06B 06-25 11:43 → N06A 06-25 20:22
PROVIDERS: ADMIT Surgery Trauma Surgery; ATTEND Surgery Trauma Surgery
PROC: 0BH17EZ Insertion of Endotracheal Airway into Trachea, Via Natural or Artificial Opening (ICD-10-PCS; 2016-06-23)
PROC: 5A1945Z Respiratory Ventilation, 24-96 Consecutive Hours (ICD-10-PCS; 2016-06-23)
PROC: 0QS906Z Reposition Left Femoral Shaft with Intramedullary Internal Fixation Device, Open Approach (ICD-10-PCS; principal; 2016-06-24 18:56)
PROC: 0PS904Z Reposition Right Clavicle with Internal Fixation Device, Open Approach (ICD-10-PCS; 2016-06-29)
PROC: 0PSB04Z Reposition Left Clavicle with Internal Fixation Device, Open Approach (ICD-10-PCS; 2016-06-29)
PROC: 0PSG04Z Reposition Left Humeral Shaft with Internal Fixation Device, Open Approach (ICD-10-PCS; 2016-06-29 12:49)
DX: S72.322A Displaced transverse fracture of shaft of left femur, initial encounter for closed fracture (principal); J96.00 Acute respiratory failure, unspecified whether with hypoxia or hypercapnia; S42.352A Displaced comminuted fracture of shaft of humerus, left arm, initial encounter for closed fracture; D62 Acute posthemorrhagic anemia; F33.9 Major depressive disorder, recurrent, unspecified; S42.021A Displaced fracture of shaft of right clavicle, initial encounter for closed fracture; S42.142A Displaced fracture of glenoid cavity of scapula, left shoulder, initial encounter for closed fracture; S42.022A Displaced fracture of shaft of left clavicle, initial encounter for closed fracture; G56.30 Lesion of radial nerve, unspecified upper limb; E86.1 Hypovolemia; R73.9 Hyperglycemia, unspecified; R00.0 Tachycardia, unspecified; K21.9 Gastro-esophageal reflux disease without esophagitis; F41.9 Anxiety disorder, unspecified; V49.50XA Passenger injured in collision with unspecified motor vehicles in traffic accident, initial encounter
CPT/HCPCS: 31500; 36430; 36600; 43753; 70450; 71010; 71260; 72125; 72170; 73000; 73060; 73551; 73552; 74177; 76000; 76937; 80048; 80053; 82435; 82565; 82805; 82947; 82948; 83735; 84100; 84132; 84295; 84520; 85007; 85025; 85027; 85610; 85730; 86850; 86900; 86901; 86920; 87641; 90471; 90715; 93005; 94002; 94003; 94150; 94640; 94664; 94667; 94668; 96374; 96375; 99291; C1713; C1769; C9113; G0390; J0131; J0690; J1170; J1230; J1580; J1650; J1885; J2250; J2270; J2405; J3010; J3370; J7030; J7050; J7120; L0150; L1830; L3908; P9016; Q9967